=== PATIENT | male | born 2000 | race African-American/Black ===

== ENCOUNTER 2022-02-23 06:00 | Emergency (ER) | payer MEDICAID, SELFPAY ==
--- NOTE | ~2022-02-23 | XR_ITS ---
XR chest 1V portable DATE: 02/23/2022 06:27 INDICATION: Transient alteration of awareness TECHNIQUE: Portable supine AP view on 02/19/2022 at 0624 hours COMPARISON: None FINDINGS: Normal heart size. No hilar or mediastinal enlargement. No pulmonary infiltrate or consolid ation, pleural effusion or pulmonary vascular congestion or pneumothorax. Included skeletal structure s are unremarkable. IMPRESSION: No active cardiopulmonary disease Reviewed, dictated and finalized at location A. GATHERING TECHNICIAN
[2022-02-23 05:58] VITALS: BP 165/101; PULSE 77; RESP 16; TEMP 36.4; O2SAT 99
--- NOTE | 2022-02-23 06:05 | ECG_ITS ---
Measurements Intervals [place] Rate: 88 P: 74 CO: 133 QRS: 58 QRSD: 97 T: 43 QT: 367 QTc: 444 Interpretive Statements SINUS RHYTHM INCOMPLETE RIGHT BUNDLE BRANCH BLOCK ST ELEVATION CONSISTENT WITH INJURY, PERICARDITIS, OR EARLY REPOLARIZATION ABNORMAL ECG NO PREVIOUS ECG AVAILABLE FOR COMPARISON Electronically Signed On 02-24-2022 15:56:16 CORPORATE RESPONSIBILITY OFFICER by Jose Corona D.O.
[2022-02-23 06:18] VITALS: PULSE 88
--- NOTE | 2022-02-23 06:43 | PC.NURSE ---
Patient more awake at this time. Patient is refusing IV and blood work, stating I don't do needles. 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 EDP [place] aware.
[2022-02-23 07:16] LABS: Mucus Urine Rare /lpf; RBC Urine 0-2 /hpf (0-2); WBC Urine 0-3 /hpf
[2022-02-23 07:17] LABS: Add Urine Microscopic? YES; Appearance Urine Clear (Clear); Bilirubin Urine Negative (Negative); Blood Urine Negative (Negative); Color Urine Yellow (Yellow); Glucose Urine UA Negative (Negative); Ketones Urine Trace mg/dL (Negative); Leukocyte Esterase Ur Negative LEU/UL (Negative); Nitrate Urine Negative (Negative); Protein Urine Negative (Negative)
[2022-02-23 07:25] LABS: Amphetamine Screen Urine Negative (Negative); Barbiturate Screen Urine Negative (Negative); Benzodiazepines Screen Urine Negative (Negative); Cannabinoid Screen Urine Positive (Negative); Cocaine Screen Urine Negative (Negative); Methadone Screen Urine Negative (Negative); Opiate Screen Urine Negative (Negative); Phencyclidine Screen Urine Negative (Negative)
--- NOTE | 2022-02-23 07:29 | ED.AMS ---
HPI - Altered Mental Status General Chief Complaint: Altered Mental Status Stated Complaint: FOUND ON SIDE OF ROAD; AMS Time Seen by Provider: 02/23/22 06:57 History of Present Illness HPI narrative: This is a 22-year-old male who denies past medical history, brought in by EMS after being found in a vehicle with altered mental status. Patient states he does not recall what happened, though remembers using marijuana earlier in the evening. He complains of right thigh pain, described as sore, 4 out of 10, not radiating and not associated with any weakness. He has no other complaints and requests his leg to be wrapped and be discharged home with family. Related Data Allergies Allergy/AdvReac Type Severity Reaction Status Date / Time No Known Allergies Allergy Verified 02/23/22 07:42 Review of Systems Review of Systems: CONSTITUTIONAL: Denies fever, chills, or sweats. EYES: Denies visual changes, redness, or discharge. ENT: Denies rhinorrhea, congestion, sore throat, or otalgia. CARDIOVASCULAR: Denies chest pain, palpitations, or edema. RESPIRATORY: Denies cough or dyspnea. GASTROINTESTINAL: Denies abdominal pain, nausea, vomiting, or diarrhea. GENITOURINARY: Denies dysuria or hematuria. SKIN: Denies rash or itching. MUSCULOSKELETAL: Right leg pain denies back pain, joint pain, or myalgia. NEUROLOGIC: Denies headache, numbness, dizziness, or weakness. PSYCHIATRIC: Denies anxiety or depression. [facility] Social History Social History (Updated 02/23/22 @ 07:30 by Yuan Johnson MD) Smoking status: Never smoker Alcohol intake: current Substance use: current Substance use type: marijuana and opiates Exam Narrative: GENERAL: Well-developed, well-nourished, and in no acute distress. HEAD: Normocephalic, atraumatic. EYES: PERRLA and EOMI. ENT: Nares clear, no rhinorrhea or epistaxis. Mucous membranes moist. Oropharynx without tonsillar hypertrophy exudate or other lesions. NECK: Supple. No adenopathy or masses. No carotid bruits or JVD CHEST: Clear to auscultation. No respiratory distress. No wheezes rales or rhonchi HEART: Regular rate and rhythm. No murmur heard. Normal peripheral pulses. ABDOMEN: Soft, nontender, nondistended, normal active bowel sounds. EXTREMITIES: Tender to palpation of the right posterior thigh without ecchymosis, soft, normal range of motion. No edema. SKIN: Warm, dry, no rash. NEURO: No focal deficits. Alert and oriented x3. PSYCH: Normal mood and affect. Course Course Emergency Course: 07:09 - On my evaluation, the patient is oriented x3 and complaining of right leg pain, requesting to wrap my body, give me a wheelchair and wrap my neck and to be discharged with family who is arriving shortly. Patient is ambulatory though with a limping gait and declines further evaluation. I suspect he is sobering from intoxication. Chest x-ray unremarkable. UA negative. UDS positive for cannabinoids. Will provide patient with an [place] wrap and discharge. Vital Signs Vital signs: Vital Signs Temperature 97.6 F 02/23/22 05:58 Pulse Rate 77 02/23/22 05:58 Respiratory Rate 16 02/23/22 05:58 Blood Pressure 165/101 H 02/23/22 05:58 Pulse Oximetry 99 02/23/22 05:58 Oxygen Delivery Room Air 02/23/22 05:58 Temperature 97.6 F 02/23/22 05:58 Pulse Rate 88 02/23/22 06:18 Respiratory Rate 16 02/23/22 05:58 Blood Pressure 165/101 H 02/23/22 05:58 Pulse Oximetry 99 02/23/22 05:58 Oxygen Delivery Room Air 02/23/22 05:58 MDM - Altered Mental Status MDM Narrative Medical decision making narrative: Plan: Labs, imaging, reassess Differential Diagnosis Differential diagnosis: Likely alcoholic intoxication and other (Drug intoxication, rhabdomyolysis, metabolic abnormality, other) Lab Data Labs: Lab Results 02/23/22 02/23/22 Range/Units 06:56 06:56 Urine Color Yellow (Yellow) Urine Appearance Clear (Clear) Urine pH 6.0 (5.0-9.0) Ur Specif
--- NOTE | 2022-02-23 07:43 | PC.NURSE ---
Pt continuing to raise his voice at staff. Pt demanding his entire body be wrapped in an nataliia wrap with his leg levitating. Pt also making racial comments towards the staff. Pt told his nurse that she is just a spoon fed bitch. Also stated I done been through some shit, so I'm milkin it a little bit.
--- NOTE | 2022-02-23 07:47 | PC.NURSE ---
Pt actively on the phone calling 911. Pt stating I can not walk right now as he is seen by multiple staff members ambulating continually out of his room, into hallway, and multiple trips to the bathroom. His nurse has been at his bedside numerous times in attempts to place MAYA Wraps but has been unsuccessful as he is not sitting still and making multiple trips to the bathroom.
--- NOTE | 2022-02-23 07:48 | PC.NURSE ---
discharge instructions and nataliia wrap brought to room. pt again ambulatory to bathroom. pt remains verbally aggressive and abusive towards staff.
--- NOTE | 2022-02-23 07:50 | PC.NURSE ---
security contacted for escort out.
--- NOTE | 2022-02-23 07:55 | PC.NURSE ---
pt threw his sock out in the hallway and told another rn she can pick it up cause its her job isnt it .
--- NOTE | 2022-02-23 07:55 | PC.NURSE ---
Pt stating to sap security consultant as he is being wheeled out of the dept i never trust a bitch, y'all racists as fuck, I am suing the fuck out of every one of them. Pt also heard telling the nurse to chicken picker his sock that he left in the hallway it's your job.
--- NOTE | 2022-02-23 08:20 | PC.NURSE ---
Pt ambulatory to intake desk. Pt making statements regarding segregation being real, Social media makes everyone believe its not. Pt then states there is a bag of chips ready to fall, do you care if I shake them free. Pt demanding crutches and stating I am gonna go fall out and then I am gonna nuris y'all. This rn offered pt a wheelchair to which pt did have a seat in.
--- NOTE | 2022-02-23 08:50 | PC.NURSE ---
Pt continues to ask editor farm [employer] for Crutches.
--- NOTE | 2022-02-23 09:10 | PC.NURSE ---
PT SPEAKING LOUDLY IN WAITING ROOM CONVERSING ON THE PHONE AND TALKING TO THIS RN AT THE SAME TIME. I'M AN OUT OF TOWN BLACK MAN AND THEY TREAT ME LIKE A N WHITE PEOPLE JUST DON'T UNDERSTAND F YOU BITCH WHEN I ATTEMPTED TO ASK WHAT HE NEEDED. THIS IS SOME BS ABOUT CRUTCHES-IF YOU GUYS DON'T WANT TO DO YOUR JOB WHY ARE YOU EVEN HERE
== END 2022-02-23 07:56 | disposition home or self-care (01) ==
PROVIDERS: Emergency Medicine; Emergency Provider Preventive Medicine Aerospace Medicine
DX: R41.82 Altered mental status, unspecified (principal); M79.651 Pain in right thigh; I45.10 Unspecified right bundle-branch block; R94.31 Abnormal electrocardiogram [ECG] [EKG]
CPT/HCPCS: 71045; 80307; 81001; 93005; 99283